=== PATIENT | male | born 1945 | race Caucasian/White ===

== ENCOUNTER → 2023-12-27 | Outpatient (CLI) | payer OTHER ==
--- NOTE | 2023-12-27 15:15 | XR ---
EXAMINATION TYPE: XR shoulder complete RT DATE OF EXAM: 12/27/2023 1:45 PM CLINICAL INDICATION:Male, 78 years old with history of M25.511 RIGHT SHOULDER PAIN; COMPARISON: None TECHNIQUE: XR shoulder complete RT; examined in AP, internally rotated and scapular Y projections. FINDINGS: No evidence of acute osseous pathology, joint dislocation, or soft tissue swelling. The remaining po rtions of the visualized chest are unremarkable. Degeneration changes of the acromion, distal clavic le with osteophyte formation. There is osteophyte formation of the glenoid and humeral head. There is joint space narrowing of glenohumeral joint IMPRESSION: 1. No acute osseous pathology. 2. 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
== END | disposition home or self-care (01) ==
LOC: RADXRMAIN 13:27
PROVIDERS: ATTEND Family Medicine
DX: M19.011 Primary osteoarthritis, right shoulder (principal)